=== PATIENT | female | born 1970 | race Caucasian/White ===

== ENCOUNTER 2018-06-09 09:54 | Emergency (ER) | payer BC ==
[2018-06-09] MEDS ORDERED: ONDANSETRON 4 MG/2 ML VIAL ONE (10:31)
[2018-06-09] MEDS ORDERED: MECLIZINE HCL 12.5 MG TAB ONE (10:31)
[2018-06-09 10:45] LABS: Absolute Lymphocytes (CBC) 1.7 K/uL (0.7-4.9); Absolute Monocytes 0.5 K/uL (0.1-1.3); Absolute Neutrophil 5.1 K/uL (1.8-8.0); Basophils % 0.7 % (0-1.3); Eosinophils % 2.7 % (0-4.4); Lymphocytes % 22.8 % (15.3-44.8); MPV 8.3 fL (7.6-11.3); Monocytes % 6.4 % (3.3-12.3); RBC Red Blood Cell Count 4.32 M/uL (3.86-4.86)
[2018-06-09 10:51] LABS: Potassium 3.7 mmol/L (3.5-5.1)
[2018-06-09] MEDS ORDERED: DIAZEPAM 10 MG/2 ML INJ SYRINGE ONE (11:02)
--- NOTE | 2018-06-09 11:25 | RAD REPORT ---
EXAM DESCRIPTION: CT - Head Brain Wo Cont - 06/09/2018 10:42 am CLINICAL HISTORY: Dizziness, vomiting, no trauma history COMPARISON: None. TECHNIQUE: Axial 5 mm thick images of the head were obtained without IV contrast. All CT scans are performed using dose optimization technique as appropriate and may include automated exposure control or mA/KV adjustment according to patient size. FINDINGS: No intracranial hemorrhage, mass, edema or shift of mid-line structures. No acute infarcti on changes seen. No abnormal extra-axial fluid collections. Ventricles are normal. Mastoid air cells and visualized portions of the paranasal sinuses are clear. No acute bony findings. IMPRESSION: Negative non-contrast CT head examination.
--- NOTE | 2018-06-09 11:39 | EDPHYS ---
Physician Documentation [facility] Name: Laurie Gonzalez Age: 48 yrs Sex: Female : 1970 Arrival Date: 06/09/2018 Time: 09:57 Bed 7 Private MD: Jessica Fuentes K ED Physician Jesus Rodríguez HPI: 06/09 10:08 This 48 yrs old Female presents to ER via Wheelchair with complaints of kdr Vomiting, Dizziness. 10:09 The patient presents with dizziness, sense of spinning, vertigo. Onset: The kdr symptoms/episode began/occurred acutely, suddenly, just prior to arrival, at 09:30. Context: occurred at home, occurred while the patient was at rest, just prior to the episode the patient experienced no apparent symptoms. Modifying factors: The symptoms are alleviated by closing eyes, holding head still, Improved but not totally resolved, the symptoms are aggravated by movement of head, standing up, changing position. Associated signs and symptoms: Pertinent positives: diaphoresis, nausea, vomiting, Pertinent negatives: abdominal pain, agitation, ataxia, blurred vision, chest pain, combativeness, confusion, focal weakness, head injury, headache, near-syncope, numbness, palpitations, , seizure, shortness of breath, syncope. Severity of symptoms: At their worst the symptoms were moderate severe just prior to arrival, in the emergency department the symptoms are unchanged. Patient's baseline: Neuro: alert and fully oriented, Motor: no deficits, Ambulation: walks without assistance, Speech: normal. The patient has experienced similar episodes in the past, a few times. The patient has not recently seen a physician. 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 - Social history:: Smoking status: Patient/guardian denies using tobacco. - Ebola Screening: : No symptoms or risks identified at this time. ROS: 10:09 Constitutional: Negative for fever, chills, and weight loss, Eyes: Negative for injury, kdr pain, redness, and discharge, Neck: Negative for injury, pain, and swelling, Cardiovascular: Negative for chest pain, palpitations, and edema, Respiratory: Negative for shortness of breath, cough, wheezing, and pleuritic chest pain, Abdomen/GI: Negative for abdominal pain, nausea, vomiting, diarrhea, and constipation, Back: Negative for injury and pain, : Negative for injury, bleeding, discharge, and swelling, MS/Extremity: Negative for injury and deformity, Skin: Negative for injury, rash, and discoloration, Psych: Negative for depression, anxiety, suicide ideation, homicidal ideation, and hallucinations, Allergy/Immunology: Negative for hives, rash, and allergies, Endocrine: Negative for neck swelling, polydipsia, polyuria, polyphagia, and marked weight changes, Hematologic/Lymphatic: Negative for swollen nodes, abnormal bleeding, and unusual bruising. 10:09 Abdomen/GI: Positive for nausea and vomiting. 10:09 Neuro: Positive for dizziness, Negative for altered mental status, gait disturbance, headache, hearing loss. Exam: 10:09 Constitutional: This is a well developed, well nourished patient who is awake, alert, kdr and in no acute distress. Head/Face: Normocephalic, atraumatic. Eyes: Pupils equal round and reactive to light, extra-ocular motions intact. Lids and lashes normal. Conjunctiva and sclera are non-icteric and not injected. Cornea within normal limits. Periorbital areas with no swelling, redness, or edema. Neck: Trachea midline, no thyromegaly or masses palpated, and no cervical lymphadenopathy. Supple, full range of motion without nuchal rigidity, or vertebral point tenderness. No Meningismus. Chest/axilla: Normal chest wall appearance and motion. Nontender with no deformity. No lesions are appreciated. Cardiovascular: Regular rate and rhythm with a normal S1 and S2. No gallops, murmurs, or rubs. Normal PMI, no JVD. No pulse deficits. Respiratory: Lungs have equal breath sounds bilaterally, clear to auscultation and percussion. No rales, rhonchi or wheezes noted. No increased work of breathing, no retractions or nasal flaring. Abdomen/GI: Soft, non-tender, with normal bowel sounds. No distension or tympany. No guarding or rebound. No evidence of tenderness throughout. Back: No spinal tenderness. No costovertebral tenderness. Full range of motion. Skin: Warm, dry with normal turgor. Normal color with no rashes, no lesions, and no evidence of cellulitis. MS/ Extremity: Pulses equal, no cyanosis. Neurovascular intact. Full, normal range of motion. Neuro: Awake and alert, GCS 15, oriented to person, place, time, and situation. Cranial nerves II-XII grossly intact. Motor strength 5/5 in all extremities. Sensory grossly intact. Cerebellar exam normal. Normal gait. Psych: Awake, alert, with orientation to person, place and time. Behavior, mood, and affect are within normal limits. Vital Signs: 10:07 BP 133 / 84; Pulse 80; Resp 16; Temp 97.9; Pulse Ox 99% on R/A; Pain 0/10; hb 10:30 BP 122 / 79; Pulse 82; Resp 16; Pulse Ox 100% on R/A; iw 11:00 BP 119 / 73; Pulse 83; Resp 16; Pulse Ox 97% on R/A; iw MDM: 11:13 Patient medically screened. snw 11:40 Data reviewed: vital signs, nurses notes, lab test result(s), radiologic studies. kdr Counseling: I had a detailed discussion with the patient and/or guardian regarding: the historical points, exam findings, and any diagnostic results supporting the discharge/admit diagnosis, lab results, radiology results, the need for outpatient follow up. ED course: The patient was much improved with the interventions given she was happy with the care provided and the plan for discharge and follow-up. 06/09 10: Order name: CBC with Diff; Complete Time: : kdr 06/09 10: Order name: Chem 7; Complete Time: 10:59 kdr 06/09 10: Order name: CT Head Brain wo Cont; Complete Time: 11:30 kdr Administered Medications: 10:32 Drug: Meclizine 25 mg Route: PO; iw 11:41 Follow up: Response: No adverse reaction; Marked relief of symptoms iw 10:32 Drug: Zofran 4 mg Route: IVP; Site: right antecubital; iw 11:00 Follow up: Response: No adverse reaction; Nausea is decreased iw 10:52 Drug: Valium 2.5 mg Route: IVP; Site: right antecubital; iw 11:40 Follow up: Response: No adverse reaction; Marked relief of symptoms iw 10:52 Drug: Valium 2.5 mg Route: IVP; Site: right antecubital; iw Disposition: 06/09/18 11:38 Discharged to Home. Impression: Vertiginous syndromes in diseases classified elsewhere, Dizziness and giddiness. - Condition is Stable. - Discharge Instructions: Benign Positional Vertigo, Dizziness. - Prescriptions for Meclizine 25 mg Oral Tablet - take 1 tablet by ORAL route every 8 hours As needed; 20 tablet. - Medication Reconciliation Form, Thank You Letter form. - Follow up: Jessica Fuentes MD; When: 2 - 3 days; Reason: If symptoms return, Further diagnostic work-up, Recheck today's complaints, Continuance of care, Re-evaluation by your physician. - Problem is new. - Symptoms are resolved. Signatures: Dispatcher [employer] EDMS Jesus Rodríguez MD MD [facility] Haylie Lara, NETWORK DESIGNER-C NETWORK DESIGNER-[employer] Rebecca Gale RN RN Enriqueta Abdi RN RN Corrections: (The following items were deleted from the chart) 11:41 10:21 Urine Test ordered. kdr iw 12:10 11:38 06/09/2018 11:38 Discharged to Home. Impression: Vertiginous syndromes in iw diseases classified elsewhere; Dizziness and giddiness. Condition is Stable. Forms are Medication Reconciliation Form, Thank You Letter, Antibiotic Education, Prescription Opioid Use. Follow up: Jessica Fuentes; When: 2 - 3 days; Reason: If symptoms return, Further diagnostic work-up, Recheck today's complaints, Continuance of care, Re-evaluation by your physician. Problem is new. Symptoms are resolved. kdr
--- NOTE | 2018-06-09 11:39 | ER ---
Nurse's Notes [facility] Name: Laurie Gonzalez Age: 48 yrs Sex: Female : 1970 Arrival Date: 06/09/2018 Time: 09:57 Bed 7 Private MD: Jessica Fuentes K Diagnosis: Vertiginous syndromes in diseases classified elsewhere;Dizziness and giddiness Presentation: 06/09 10:05 Presenting complaint: Dizziness and N/V that started at approx 0900. VAN NEGATIVE. hb Transition of care: patient was not received from another setting of care. Onset of symptoms was June 09, 2018 at 09:00. Risk Assessment: Do you want to hurt yourself or someone else? Patient reports no desire to harm self or others. Care prior to arrival: Medication(s) given: Motrin, at 0800. 10:05 Method Of Arrival: Wheelchair hb 10:05 Acuity: JANELL 3 hb 10:13 Initial Sepsis Screen: Does the patient meet any 2 criteria? No. Patient's initial ph sepsis screen is negative. Does the patient have a suspected source of infection? No. Patient's initial sepsis screen is negative. Triage Assessment: 10:30 General: Behavior is calm, cooperative. 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 - Social history:: Smoking status: Patient/guardian denies using tobacco. - Ebola Screening: : No symptoms or risks identified at this time. Screenin:08 Abuse screen: Denies threats or abuse. Denies injuries from another. Nutritional hb screening: No deficits noted. Tuberculosis screening: No symptoms or risk factors identified. 10:14 Fall Risk None identified. ph Assessment: 10:20 General: Appears in no apparent distress. Pain: Denies pain. Neuro: Level of iw Consciousness is awake, alert, obeys commands, Oriented to person, place, time, situation, Moves all extremities. Full function. Neuro: Reports dizziness, Denies weakness. Respiratory: Respiratory effort is even, unlabored, Respiratory pattern is regular. GI: Abdomen is flat, non-distended, Reports nausea, vomiting. Derm: Skin is intact, is healthy with good turgor. Musculoskeletal: Range of motion: intact in all extremities. 10:58 Reassessment: Patient appears in no apparent distress at this time. Patient and/or iw family updated on plan of care and expected duration. Pain level reassessed. Patient is alert, oriented x 3, equal unlabored respirations, skin warm/dry/pink. administered 2.5 mg Valium IVP. Vital Signs: 10:07 BP 133 / 84; Pulse 80; Resp 16; Temp 97.9; Pulse Ox 99% on R/A; Pain 0/10; hb 10:30 BP 122 / 79; Pulse 82; Resp 16; Pulse Ox 100% on R/A; iw 11:00 BP 119 / 73; Pulse 83; Resp 16; Pulse Ox 97% on R/A; iw ED Course: 09:57 Patient arrived in ED. mr 09:57 Jessica Fuentes MD is Private Physician. mr 10:01 Jesus Rodríguez MD is Attending Physician. kdr 10:06 Triage completed. hb 10:07 Arm band placed on. hb 10:12 Gema Craig RN is Primary Nurse. ph 10:13 Patient has correct armband on for positive identification. Side rails up X 1. Bed in ph low position. Call light in reach. monitoring engineer on. Pulse ox on. NIBP on. 10:17 Inserted saline lock: 22 gauge in right antecubital area, using aseptic technique. iw 10:42 CT Head Brain wo Cont In Process Unspecified. EDMS 11:02 Primary Nurse role handed off by Gema Craig RN iw 11:02 Rebecca Gale, ANNIKA is Primary Nurse. iw 11:37 Jessica Fuentes MD is Referral Physician. kdr 11:48 No provider procedures requiring assistance completed. IV discontinued, intact, iw bleeding controlled, No redness/swelling at site. Pressure dressing applied. Administered Medications: 10:32 Drug: Meclizine 25 mg Route: PO; iw 11:41 Follow up: Response: No adverse reaction; Marked relief of symptoms iw 10:32 Drug: Zofran 4 mg Route: IVP; Site: right antecubital; iw 11:00 Follow up: Response: No adverse reaction; Nausea is decreased iw 10:52 Drug: Valium 2.5 mg Route: IVP; Site: right antecubital; iw 11:40 Follow up: Response: No adverse reaction; Marked relief of symptoms iw 10:52 Drug: Valium 2.5 mg Route: IVP; Site: right antecubital; iw Outcome: 11:38 Discharge ordered by . kdr 11:48 Discharged to home ambulatory, with family. iw 11:48 Condition: good 11:48 Discharge instructions given to patient, Instructed on discharge instructions, follow up and referral plans. medication usage, Demonstrated understanding of instructions, follow-up care, medications, Prescriptions given X 1. 12:10 Patient left the ED. iw Signatures: Dispatcher [employer] EDMS Jesus Rodríguez MD MD [facility], [place] Rebecca Roberts RN RN Gema Craig RN RN Enriqueta Abdi RN RN Corrections: (The following items were deleted from the chart) 11:02 10:58 Reassessment: Patient appears in no apparent distress at this time. Patient iw and/or family updated on plan of care and expected duration. Pain level reassessed. Patient is alert, oriented x 3, equal unlabored respirations, skin warm/dry/pink. iw
== END 2018-06-09 12:10 | disposition home or self-care (01) ==
LOC: ER 09:54
DX: R42 Dizziness and giddiness (principal); H82.9 Vertiginous syndromes in diseases classified elsewhere, unspecified ear
CPT/HCPCS: 36415; 70450; 80048; 85025; 96374; 96375; 99284; J2405; J3360

== ENCOUNTER 2022-08-19 06:51 | Day surgery (SDC) | payer BC ==
[2022-08-17 10:38] LABS: Potassium 4.3 mEq/L (3.5-5.1)
--- NOTE | 2022-08-17 18:07 | EKG ---
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
[2022-08-19] MEDS ORDERED: Ringers Lactate 1,000 ML IV ONE (07:20)
[2022-08-19 07:56] LABS: Urine Specific Gravity/Preg >1.030 (1.005-1.030)
[2022-08-19] MEDS ORDERED: propofoL 200 MG/20 ML VIAL IV ONE (08:21)
[2022-08-19] MEDS ORDERED: LIDOCAINE 1% MPF 5 ML VIAL ONE (08:21)
[2022-08-19 09:58] VITALS: BP 134/80; TEMP 97; O2SAT 100
== END 2022-08-19 09:18 | disposition home or self-care (01) ==
LOC: OR 06:51
PROVIDERS: ATTEND Surgery
PROC: 0DBP8ZX Excision of Rectum, Via Natural or Artificial Opening Endoscopic, Diagnostic (ICD-10-PCS; principal; 2022-08-19 08:15)
DX: Z12.11 Encounter for screening for malignant neoplasm of colon (principal); K63.89 Other specified diseases of intestine; K64.8 Other hemorrhoids
CPT/HCPCS: 93005; 80048; 36415; 81025; 88305; 45380; J2704; J2001; J7120